=== PATIENT | female | born 1970 | race Caucasian/White ===

== ENCOUNTER 2020-04-05 12:57 | Outpatient (CLI) | payer OTHER | END 2020-04-05 13:04 | disposition home or self-care (01) | LOC: RAD 12:57 | PROVIDERS: ATTEND Physical Medicine & Rehabilitation | DX: M62.838 Other muscle spasm (principal); M54.2 Cervicalgia; M54.5 Low back pain; M06.9 Rheumatoid arthritis, unspecified ==

== ENCOUNTER 2020-05-22 20:25 | Emergency (ER) | payer OTHER ==
[~2020-05-22] VITALS: Ht 152.4 cm; Wt 77.1 kg
[2020-05-22] MEDS ORDERED: NEURONTIN 400 MG (20:53)
== END 2020-05-22 22:14 | disposition home or self-care (01) ==
LOC: ER 20:25
DX: L97.828 Non-pressure chronic ulcer of other part of left lower leg with other specified severity (principal); L97.818 Non-pressure chronic ulcer of other part of right lower leg with other specified severity

== ENCOUNTER 2022-05-17 22:19 | Inpatient (IN) | payer OTHER ==
[~2022-05-17] VITALS: Ht 228.6 cm; Wt 90.7 kg
[~2022-05-17 22:19] MED LIST: NEURONTIN 400 MG
--- NOTE | 2022-05-17 22:41 | NUR ---
FAMILIAR REFIERE QUE RODGERS MADRE NO PUEDE MOVERSE EL LADO DERECHO Y TIENE DIFICULTAD AL HABLAR, SE UBICA PTE EN EL AREA DE OBSERVACION Y SE REALIZA EKG Y SE PRESENTA PTE AL DR SKAGGS, PTE NO RECUERDA LA HORA EXACTA CUANDO LE COMENZO EL EPISODIO. SE UBICA PTE EN ABDIEL CON BARANDA ELEVADA Y TIMBRE ACCESIBLE.
--- NOTE | 2022-05-18 01:00 | NUR ---
JOSE SOARES ORIENTA A PTE SOBRE TRATAMIENTO E INSTRUCCIONES A SEGUIR, TERRENCE REFIERE ENTENDER. LE COLECTA MUESTRAS, SE CANALIZA Y SE ADMINISTRA MEDICAMENTO VAMSHI ORDEN MEDICA. PENDIENTE CT HEAD Y U/A
--- NOTE | 2022-05-18 06:53 | NUR ---
SE RECIBE PTE DEL TURNO ANTERIOR, ALERTA Y ORIENTADA EN ELEN AMAN ESFERAS, UBICADA EN ABDIEL NIVEL MAS BAJO, GERARD DE IDENTIFICACION Y BARANDAS ELEVADAS POR PRECAUCION. SE OBSERVA CON BUEN PATRON RESPIRATORIO. PIEL TIBIA AL TACTO, IV PATENTE Y HARSHIL DE EDEMA O ERITEMA RECIBIENDO 0.9% NSS @150ML/HR. PENDIENTE CONSULTA CON DR WHITFIELD ([facility]).
[2022-05-21] MEDS ORDERED: GABAPENTIN400 MG (08:22)
== END 2022-05-24 13:10 | disposition designated cancer center or children's hospital (05) | DRG 65 ==
LOC: ER 22:19 → MEDI 05-18 14:28 → SEC-K 05-18 14:28 → MEDI 05-18 14:34
PROVIDERS: ADMIT Internal Medicine; ATTEND Internal Medicine
PROC: B24BZZZ Ultrasonography of Heart with Aorta (ICD-10-PCS; principal; 2022-05-18)
PROC: B345ZZZ Ultrasonography of Bilateral Common Carotid Arteries (ICD-10-PCS; 2022-05-18)
PROC: BW38ZZZ Magnetic Resonance Imaging (MRI) of Head (ICD-10-PCS; 2022-05-18)
PROC: BW38YZZ Magnetic Resonance Imaging (MRI) of Head using Other Contrast (ICD-10-PCS; 2022-05-21)
DX: I63.9 Cerebral infarction, unspecified (principal); I69.351 Hemiplegia and hemiparesis following cerebral infarction affecting right dominant side; R47.81 Slurred speech; E86.0 Dehydration; R41.82 Altered mental status, unspecified; E11.65 Type 2 diabetes mellitus with hyperglycemia; Z79.4 Long term (current) use of insulin; Z20.822 Contact with and (suspected) exposure to COVID-19
CPT/HCPCS: 70544; 70545